=== PATIENT | female | born 1960 | race Caucasian/White ===

== ENCOUNTER 2018-06-14 21:31 | Emergency (ER) | payer MEDICAID ==
[~2018-06-14] VITALS: Ht 165.1 cm; Wt 97.8 kg
[~2018-06-14 21:31] MED LIST: ASPI81TA52 PO; ATOR20TA PO; BACL10TA PO; BUSP10TA11 PO; CARV6.253 PO; CLOP75TA35 PO; DOCU100C40 PO; FURO40TA4 PO; HYDR28.316 PR; LANS30CA37 PO; LISI-604 PO; LORA0.5T PO; NAS0.025NS BOTHNARES; NYST30CR2 TP; PARO10TA85 PO; PHEN100C4 PO; SUCR1ORA2 PO; ZOLP10TA5 PO; [UNRECOGNIZED DRUG - CODE] SL
[2018-06-14 22:05] LABS: BASOPHILS % (AUTO) 0.5 % (0-1); EOSINOPHILS # (AUTO) 0.1 X10'3 (0-0.9); HEMOGLOBIN 11.9 g/dl (12.0-16.0); LYMPHOCYTES # (AUTO) 2.7 X10'3 (1.1-4.8); LYMPHOCYTES % (AUTO) 36.4 % (21-51); MEAN CORPUSCULAR HEMOGLOBIN 27.5 PG (27.0-31.0); MEAN CORPUSCULAR HGB CONC 33.1 g/dL (33.0-36.5); MEAN CORPUSCULAR VOLUME 82.9 FL (78-98); MEAN PLATELET VOLUME 7.9 FL (7.4-10.4); MONOCYTES # (AUTO) 0.7 X10'3 (0-0.9); NEUTROPHILS # (AUTO) 3.8 X10'3 (1.8-7.7); NEUTROPHILS % (AUTO) 51.1 % (42-75); PLATELET COUNT 248 X10'3 (140-440); RED BLOOD COUNT 4.35 X10'6 (4.20-5.60); RED CELL DISTRIBUTION WIDTH 14.7 % (11.5-14.5); WHITE BLOOD COUNT 7.4 X10'3 (4.5-11.0)
[2018-06-14] MEDS ORDERED: aspirin 325mg tablet PO ONE (22:05)
[2018-06-14 22:16] LABS: ALANINE AMINOTRANSFERASE 43 U/L (12-78); ALBUMIN 3.8 G/DL (3.4-5.0); ALBUMIN/GLOBULIN RATIO 0.8 (1.1-1.5); ALKALINE PHOSPHATASE 91 IU/L (46-116); ANION GAP 6 (8-16); ASPARTATE AMINO TRANSFERASE 39 U/L (10-37); BILIRUBIN,TOTAL 0.2 MG/DL (0.1-1.0); BLOOD UREA NITROGEN 9 MG/DL (7-18); BUN/CREATININE RATIO 9.5 (6.6-38.0); CALCIUM 9.4 MG/DL (8.5-10.1); CHLORIDE 100 MMOL/L (99-107); CREATININE 0.95 MG/DL (0.40-0.90); GLUCOSE 117 MG/DL (70-104); POTASSIUM 3.5 MMOL/L (3.5-5.1); SODIUM 136 MMOL/L (135-145); TOTAL CARBON DIOXIDE 29.9 MMOL/L (24-32); TOTAL PROTEIN 8.4 G/DL (6.4-8.2); eGFR 61 ML/MIN
[2018-06-14 22:30] LABS: PARTIAL THROMBOPLASTIN TIME 40 SECONDS (22-32)
[2018-06-15 01:03] VITALS: BP 117/50
== END 2018-06-15 01:41 | disposition home or self-care (01) ==
LOC: ER 21:32
DX: R07.89 Other chest pain (principal); M79.652 Pain in left thigh; R51 Headache; R20.2 Paresthesia of skin; I10 Essential (primary) hypertension; I25.2 Old myocardial infarction; E11.9 Type 2 diabetes mellitus without complications; G89.29 Other chronic pain; J44.9 Chronic obstructive pulmonary disease, unspecified; Z79.899 Other long term (current) drug therapy; Z79.82 Long term (current) use of aspirin; Z88.0 Allergy status to penicillin; Z88.1 Allergy status to other antibiotic agents; Z88.2 Allergy status to sulfonamides; Z88.8 Allergy status to other drugs, medicaments and biological substances; Z90.710 Acquired absence of both cervix and uterus; Z98.890 Other specified postprocedural states; Z99.81 Dependence on supplemental oxygen
CPT/HCPCS: 36415; 71045; 80053; 84484; 85025; 85610; 85730; 93005; 99284

== ENCOUNTER 2020-01-11 15:49 | Emergency (ER) | payer MEDICAID ==
[~2020-01-11] VITALS: Ht 165.1 cm; Wt 111.4 kg
[~2020-01-11 15:49] MED LIST changes: +[UNRECOGNIZED DRUG - CODE] SL; -[UNRECOGNIZED DRUG - CODE] SL
[2020-01-11] MEDS ORDERED: normal saline 1000ML IV soln IVB ONE (16:45)
[2020-01-11 17:34] LABS: BASOPHILS # (AUTO) 0.1 X10'3 (0-0.2); BASOPHILS % (AUTO) 0.7 % (0-1); EOSINOPHILS # (AUTO) 0.1 X10'3 (0-0.9); EOSINOPHILS % (AUTO) 1.7 % (0-6); HEMATOCRIT 35.7 % (35.0-45.0); HEMOGLOBIN 11.8 g/dl (12.0-16.0); LYMPHOCYTES # (AUTO) 2.6 X10'3 (1.1-4.8); LYMPHOCYTES % (AUTO) 30.7 % (21-51); MEAN CORPUSCULAR HEMOGLOBIN 25.5 PG (27.0-31.0); MEAN CORPUSCULAR VOLUME 77.1 FL (78-98); MEAN PLATELET VOLUME 8.6 FL (7.4-10.4); MONOCYTES # (AUTO) 0.6 X10'3 (0-0.9); MONOCYTES % (AUTO) 7.2 % (2-12); NEUTROPHILS # (AUTO) 5.1 X10'3 (1.8-7.7); NEUTROPHILS % (AUTO) 59.7 % (42-75); PLATELET COUNT 220 X10'3 (140-440); RED BLOOD COUNT 4.63 X10'6 (4.20-5.60); RED CELL DISTRIBUTION WIDTH 16.4 % (11.5-14.5); WHITE BLOOD COUNT 8.5 X10'3 (4.5-11.0)
[2020-01-11 17:58] LABS: ALANINE AMINOTRANSFERASE 30 U/L (12-78); ALBUMIN 3.6 G/DL (3.4-5.0); ALBUMIN/GLOBULIN RATIO 0.6 (1.1-1.5); ALKALINE PHOSPHATASE 100 IU/L (46-116); ANION GAP 9 (8-16); ASPARTATE AMINO TRANSFERASE 31 U/L (10-37); BILIRUBIN,TOTAL 0.2 MG/DL (0.1-1.0); BLOOD UREA NITROGEN 10 MG/DL (7-18); BUN/CREATININE RATIO 11.2 (6.6-38.0); CALCIUM 9.3 MG/DL (8.5-10.1); CHLORIDE 98 MMOL/L (99-107); CREATININE 0.89 MG/DL (0.40-0.90); GLUCOSE 107 MG/DL (70-104); POTASSIUM 3.9 MMOL/L (3.5-5.1); SODIUM 138 MMOL/L (135-145); TOTAL CARBON DIOXIDE 30.9 MMOL/L (24-32); TOTAL PROTEIN 9.2 G/DL (6.4-8.2); eGFR 65 ML/MIN
[2020-01-11 18:02] LABS: C-REACTIVE PROTEIN 0.08 MG/DL (0.0-0.5); FERRITIN 12 NG/ML (8-252); LACTATE DEHYDROGENASE 180 U/L (81-234); LIPASE 251 U/L (73-393)
[2020-01-11] MEDS ORDERED: CIPR-259 PO (18:36)
[2020-01-11] MEDS ORDERED: METR500T PO (18:36)
[2020-01-11 18:50] VITALS: BP 120/80
== END 2020-01-11 18:51 | disposition home or self-care (01) ==
LOC: ER 15:50
DX: J02.9 Acute pharyngitis, unspecified (principal); B34.9 Viral infection, unspecified; R10.84 Generalized abdominal pain; K52.9 Noninfective gastroenteritis and colitis, unspecified; R43.8 Other disturbances of smell and taste; Z20.828 Contact with and (suspected) exposure to other viral communicable diseases; I10 Essential (primary) hypertension; I25.2 Old myocardial infarction; J45.909 Unspecified asthma, uncomplicated; E11.9 Type 2 diabetes mellitus without complications; G89.29 Other chronic pain; Z86.69 Personal history of other diseases of the nervous system and sense organs; Z90.710 Acquired absence of both cervix and uterus; Z98.890 Other specified postprocedural states; Z88.0 Allergy status to penicillin; Z88.2 Allergy status to sulfonamides; Z88.1 Allergy status to other antibiotic agents; Z88.8 Allergy status to other drugs, medicaments and biological substances; Z79.82 Long term (current) use of aspirin; Z79.2 Long term (current) use of antibiotics; Z79.899 Other long term (current) drug therapy
CPT/HCPCS: 36415; 74176; 80053; 82728; 83615; 83690; 84145; 85025; 85384; 86140; 87635; 96360; 99284; C9803; J7030

== ENCOUNTER 2020-08-27 21:39 | Emergency (ER) | payer MEDICAID ==
[~2020-08-27] VITALS: Ht 165.1 cm; Wt 90.0 kg
[~2020-08-27 21:39] MED LIST changes: +CLOP75TA34 PO; -CLOP75TA35 PO; -LISI-604 PO; +LISI-790 PO
[2020-08-27 23:30] LABS: BASOPHILS % (AUTO) 0.4 % (0-1); EOSINOPHILS # (AUTO) 0.2 X10'3 (0-0.9); EOSINOPHILS % (AUTO) 3.2 % (0-6); HEMATOCRIT 30.9 % (35.0-45.0); HEMOGLOBIN 10.1 g/dl (12.0-16.0); LYMPHOCYTES # (AUTO) 1.8 X10'3 (1.1-4.8); LYMPHOCYTES % (AUTO) 23.3 % (21-51); MEAN CORPUSCULAR HEMOGLOBIN 26.5 PG (27.0-31.0); MEAN CORPUSCULAR HGB CONC 32.7 g/dL (33.0-36.5); MEAN PLATELET VOLUME 8.4 FL (7.4-10.4); MONOCYTES # (AUTO) 0.6 X10'3 (0-0.9); NEUTROPHILS # (AUTO) 4.9 X10'3 (1.8-7.7); NEUTROPHILS % (AUTO) 65.1 % (42-75); PLATELET COUNT 158 X10'3 (140-440); RED BLOOD COUNT 3.82 X10'6 (4.20-5.60); WHITE BLOOD COUNT 7.6 X10'3 (4.5-11.0)
[2020-08-27 23:47] LABS: ALANINE AMINOTRANSFERASE 29 U/L (12-78); ALBUMIN/GLOBULIN RATIO 0.6 (1.1-1.5); ALKALINE PHOSPHATASE 57 IU/L (46-116); ANION GAP 5 (8-16); ASPARTATE AMINO TRANSFERASE 40 U/L (10-37); BILIRUBIN,TOTAL 0.3 MG/DL (0.1-1.0); BLOOD UREA NITROGEN 4 MG/DL (7-18); BUN/CREATININE RATIO 5.2 (6.6-38.0); CALCIUM 8.7 MG/DL (8.5-10.1); CHLORIDE 103 MMOL/L (99-107); CREATININE 0.77 MG/DL (0.40-0.90); GLUCOSE 104 MG/DL (70-104); POTASSIUM 3.3 MMOL/L (3.5-5.1); SODIUM 138 MMOL/L (135-145); TOTAL CARBON DIOXIDE 29.7 MMOL/L (24-32); TOTAL PROTEIN 8.1 G/DL (6.4-8.2); eGFR 77 ML/MIN
[2020-08-28 00:02] VITALS: BP 143/90
== END 2020-08-28 00:05 | disposition home or self-care (01) ==
LOC: ER 21:41
DX: T81.9XXA Unspecified complication of procedure, initial encounter (principal); R23.3 Spontaneous ecchymoses; I11.9 Hypertensive heart disease without heart failure; J45.909 Unspecified asthma, uncomplicated; J44.9 Chronic obstructive pulmonary disease, unspecified; F41.9 Anxiety disorder, unspecified; F32.9 Major depressive disorder, single episode, unspecified; E11.9 Type 2 diabetes mellitus without complications; Z88.0 Allergy status to penicillin; Z88.2 Allergy status to sulfonamides; Z88.8 Allergy status to other drugs, medicaments and biological substances; Z79.899 Other long term (current) drug therapy
CPT/HCPCS: 36415; 80053; 84145; 85025; 99283

== ENCOUNTER 2021-09-13 19:52 | Emergency (ER) | payer MEDICAID ==
[~2021-09-13] VITALS: Ht 165.1 cm; Wt 98.1 kg
[~2021-09-13 19:52] MED LIST changes: -LISI-790 PO; +LISI5TAB22 PO; -NYST30CR2 TP; +NYST30CR34 TP
[2021-09-13 22:11] LABS: BASOPHILS % (AUTO) 0.5 % (0-1); EOSINOPHILS # (AUTO) 0.1 X10'3 (0-0.9); EOSINOPHILS % (AUTO) 0.9 % (0-6); HEMATOCRIT 37.5 % (35.0-45.0); HEMOGLOBIN 12.3 g/dl (12.0-16.0); LYMPHOCYTES # (AUTO) 1.9 X10'3 (1.1-4.8); LYMPHOCYTES % (AUTO) 35.3 % (21-51); MEAN CORPUSCULAR HEMOGLOBIN 26.2 PG (27.0-31.0); MEAN CORPUSCULAR HGB CONC 32.7 g/dL (33.0-36.5); MEAN CORPUSCULAR VOLUME 79.9 FL (78-98); MEAN PLATELET VOLUME 8.6 FL (7.4-10.4); MONOCYTES # (AUTO) 0.7 X10'3 (0-0.9); MONOCYTES % (AUTO) 13.1 % (2-12); NEUTROPHILS # (AUTO) 2.7 X10'3 (1.8-7.7); NEUTROPHILS % (AUTO) 50.2 % (42-75); PLATELET COUNT 183 X10'3 (140-440); RED CELL DISTRIBUTION WIDTH 16.7 % (11.5-14.5); WHITE BLOOD COUNT 5.4 X10'3 (4.5-11.0)
[2021-09-13] MEDS ORDERED: diphenhydrAMINE 50 mg/ml inj IV PRN (22:15)
[2021-09-13] MEDS ORDERED: BEBTELOVIMAB 175 MG/2 ML VIAL IV ONE (22:15)
[2021-09-13] MEDS ORDERED: acetaminophen 325mg tablet PO PRN (22:15)
[2021-09-13] MEDS ORDERED: epiNEPHrine 1 mg/ml inj IM PRN (22:15)
[2021-09-13] MEDS ORDERED: albuterol 2.5 MG/3 ML nebule NEB PRN (22:15)
[2021-09-13] MEDS ORDERED: hydrocortisone sod succ/PF 100mg/2ml inj. IV PRN (22:15)
[2021-09-13] MEDS ORDERED: famotidine/PF 10 mg/ml inj IV PRN (22:15)
[2021-09-13 22:20] LABS: ALANINE AMINOTRANSFERASE 32 U/L (12-78); ALBUMIN 3.8 G/DL (3.4-5.0); ALBUMIN/GLOBULIN RATIO 0.7 (1.1-1.5); ALKALINE PHOSPHATASE 81 IU/L (46-116); ANION GAP 8 (8-16); ASPARTATE AMINO TRANSFERASE 36 U/L (10-37); BILIRUBIN,TOTAL 0.3 MG/DL (0.1-1.0); BLOOD UREA NITROGEN 10 MG/DL (7-18); BUN/CREATININE RATIO 9.8 (6.6-38.0); CALCIUM 8.6 MG/DL (8.5-10.1); CHLORIDE 100 MMOL/L (99-107); CREATININE 1.02 MG/DL (0.40-0.90); GLUCOSE 103 MG/DL (70-104); POTASSIUM 3.7 MMOL/L (3.5-5.1); SODIUM 139 MMOL/L (135-145); TOTAL CARBON DIOXIDE 31.4 MMOL/L (24-32); TOTAL PROTEIN 9.5 G/DL (6.4-8.2); eGFR 55 ML/MIN
[2021-09-13 22:44] LABS: CLARITY,URINE CLOUDY (Clear); COLOR,URINE YELLOW (Yellow); GLUCOSE, URINE NEGATIVE (Neg); KETONES,URINE NEGATIVE (Neg); LEUKOCYTE ESTERASE ,URINE SMALL (Neg); NITRITES, URINE NEGATIVE (Neg); OCCULT BLOOD,URINE TRACE-INTACT (Neg); PROTEIN,URINE 30 mg/dl (Neg); UROBILINOGEN,URINE 0.2 E.U/dL (0.2-1.0)
[2021-09-13 22:57] LABS: UA COLLECTION TYPE NON-SPECIFIED
[2021-09-13 23:03] LABS: BACTERIA,URINE 2+ /HPF (Neg); RBC,URINE 0-2 /HPF (0-2); SQUAMOUS EPITHELIAL CELL,UR MANY /LPF (FEW)
[2021-09-13 23:04] LABS: MUCUS STRANDS FEW /LPF (Neg); TRANSITIONAL EPI CELLS,URINE FEW /HPF
[2021-09-13] MEDS ORDERED: phenazopyridine 100mg tablet PO ONE (23:15)
[2021-09-13] MEDS ORDERED: azithromycin 250mg tablet PO ONE (23:15)
[2021-09-13] MEDS ORDERED: AZIT-83 PO (23:21)
[2021-09-13] MEDS ORDERED: acetaminophen 325mg tablet PO ONE (23:55)
[2021-09-14 04:04] VITALS: BP 112/78
== END 2021-09-14 04:07 | disposition home or self-care (01) ==
LOC: ER 19:54
DX: U07.1 COVID-19 (principal); N30.00 Acute cystitis without hematuria; I11.9 Hypertensive heart disease without heart failure; E11.9 Type 2 diabetes mellitus without complications; F41.9 Anxiety disorder, unspecified; F32.A Depression, unspecified; Z98.890 Other specified postprocedural states; Z88.0 Allergy status to penicillin; Z88.2 Allergy status to sulfonamides; Z88.1 Allergy status to other antibiotic agents; Z88.8 Allergy status to other drugs, medicaments and biological substances; Z79.899 Other long term (current) drug therapy; Z79.82 Long term (current) use of aspirin; Z79.2 Long term (current) use of antibiotics
CPT/HCPCS: 36415; 71045; 80053; 81001; 85025; 87088; 87811; 93005; 99285; M0222; Q0222

== ENCOUNTER 2022-08-01 16:32 | Inpatient (IN) | payer MEDICAID ==
[~2022-08-01] VITALS: Ht 165.1 cm; Wt 94.1 kg
[~2022-08-01 16:32] MED LIST changes: +PARO-153 PO; -PARO10TA85 PO
[2022-08-01 17:19] LABS: BASOPHILS % (AUTO) 0.5 % (0-1); EOSINOPHILS # (AUTO) 0.2 X10'3 (0-0.9); EOSINOPHILS % (AUTO) 1.7 % (0-6); HEMATOCRIT 45.7 % (35.0-45.0); HEMOGLOBIN 15.5 g/dl (12.0-16.0); LYMPHOCYTES % (AUTO) 31.4 % (21-51); MEAN CORPUSCULAR HEMOGLOBIN 30.9 PG (27.0-31.0); MEAN CORPUSCULAR VOLUME 90.8 FL (78-98); MEAN PLATELET VOLUME 8.8 FL (7.4-10.4); MONOCYTES # (AUTO) 0.6 X10'3 (0-0.9); MONOCYTES % (AUTO) 6.1 % (2-12); NEUTROPHILS # (AUTO) 5.8 X10'3 (1.8-7.7); NEUTROPHILS % (AUTO) 60.3 % (42-75); PLATELET COUNT 209 X10'3 (140-440); RED BLOOD COUNT 5.03 X10'6 (4.20-5.60); WHITE BLOOD COUNT 9.6 X10'3 (4.5-11.0)
[2022-08-01 17:40] LABS: ALANINE AMINOTRANSFERASE 37 U/L (12-78); ALBUMIN/GLOBULIN RATIO 0.8 (1.1-1.5); ALKALINE PHOSPHATASE 104 IU/L (46-116); ANION GAP 6 (8-16); ASPARTATE AMINO TRANSFERASE 39 U/L (10-37); BILIRUBIN,TOTAL 0.2 MG/DL (0.1-1.0); BLOOD UREA NITROGEN 6 MG/DL (7-18); BUN/CREATININE RATIO 6.5 (10.0-20.0); CALCIUM 9.2 MG/DL (8.5-10.1); CHLORIDE 100 MMOL/L (99-107); CREATININE 0.92 MG/DL (0.40-0.90); GLUCOSE 106 MG/DL (70-104); POTASSIUM 3.8 MMOL/L (3.5-5.1); SODIUM 137 MMOL/L (135-145); TOTAL CARBON DIOXIDE 31.3 MMOL/L (24-32); TOTAL PROTEIN 9.1 G/DL (6.4-8.2); eGFR 62 ML/MIN
--- NOTE | 2022-08-01 19:23 | NUR ---
pt to ct
[2022-08-01 19:25] LABS: BASOPHILS # (AUTO) 0.1 X10'3 (0-0.2); BASOPHILS % (AUTO) 0.6 % (0-1); EOSINOPHILS # (AUTO) 0.2 X10'3 (0-0.9); EOSINOPHILS % (AUTO) 1.7 % (0-6); HEMATOCRIT 44.3 % (35.0-45.0); HEMOGLOBIN 15.1 g/dl (12.0-16.0); LYMPHOCYTES # (AUTO) 2.9 X10'3 (1.1-4.8); LYMPHOCYTES % (AUTO) 30.1 % (21-51); MEAN CORPUSCULAR HEMOGLOBIN 31.1 PG (27.0-31.0); MEAN CORPUSCULAR HGB CONC 34.1 g/dL (33.0-36.5); MEAN CORPUSCULAR VOLUME 91.2 FL (78-98); MEAN PLATELET VOLUME 8.2 FL (7.4-10.4); MONOCYTES # (AUTO) 0.6 X10'3 (0-0.9); NEUTROPHILS # (AUTO) 5.9 X10'3 (1.8-7.7); NEUTROPHILS % (AUTO) 61.6 % (42-75); PLATELET COUNT 199 X10'3 (140-440); RED BLOOD COUNT 4.86 X10'6 (4.20-5.60); RED CELL DISTRIBUTION WIDTH 13.6 % (11.5-14.5); WHITE BLOOD COUNT 9.6 X10'3 (4.5-11.0)
[2022-08-01] MEDS: normal saline 500ml IV soln 500 ML IV SCH ×3 (19:28→23:15)
[2022-08-01 19:40] LABS: ALANINE AMINOTRANSFERASE 38 U/L (12-78); ALBUMIN 4.1 G/DL (3.4-5.0); ALBUMIN/GLOBULIN RATIO 0.9 (1.1-1.5); ALKALINE PHOSPHATASE 98 IU/L (46-116); ANION GAP 6 (8-16); ASPARTATE AMINO TRANSFERASE 37 U/L (10-37); BILIRUBIN,TOTAL 0.3 MG/DL (0.1-1.0); BLOOD UREA NITROGEN 7 MG/DL (7-18); BUN/CREATININE RATIO 7.3 (10.0-20.0); CALCIUM 9.5 MG/DL (8.5-10.1); CHLORIDE 100 MMOL/L (99-107); CREATININE 0.96 MG/DL (0.40-0.90); GLUCOSE 126 MG/DL (70-104); POTASSIUM 3.7 MMOL/L (3.5-5.1); SODIUM 138 MMOL/L (135-145); TOTAL PROTEIN 8.9 G/DL (6.4-8.2); eGFR 59 ML/MIN
[2022-08-01 19:43] LABS: ETHANOL < 0.010 GM/DL (0.0-0.010)
[2022-08-01 20:48] LABS: CLARITY,URINE SLIGHTLY CLOUDY (Clear); GLUCOSE, URINE NEGATIVE (Neg); KETONES,URINE NEGATIVE (Neg); LEUKOCYTE ESTERASE ,URINE NEGATIVE (Neg); NITRITES, URINE NEGATIVE (Neg); OCCULT BLOOD,URINE NEGATIVE (Neg); PH,URINE 5.5 (4.8-8.0); PROTEIN,URINE 30 mg/dl (Neg); UROBILINOGEN,URINE 0.2 E.U/dL (0.2-1.0)
[2022-08-01 20:50] LABS: COLOR,URINE DARK YELLOW (Yellow); UA COLLECTION TYPE CLN CATCH MIDSTREAM
[2022-08-01 21:01] LABS: BACTERIA,URINE 3+ /HPF (Neg); MUCUS STRANDS FEW /LPF (Neg); RBC,URINE 0-2 /HPF (0-2); SQUAMOUS EPITHELIAL CELL,UR MANY /LPF (FEW); TRANSITIONAL EPI CELLS,URINE FEW /HPF
[2022-08-01 21:03] LABS: URINE AMPHETAMINE SCREEN NEGATIVE (Neg); URINE BARBITUATE SCREEN POSITIVE (Neg); URINE BENZODIAZEPINES SCREEN NEGATIVE (Neg); URINE CANNABINOID SCREEN NEGATIVE (Neg); URINE COCAINE SCREEN NEGATIVE (Neg); URINE METHADONE SCREEN NEGATIVE (Neg); URINE OPIATE SCREEN NEGATIVE (Neg); URINE PHENCYCLIDINE SCREEN NEGATIVE (Neg)
--- NOTE | 2022-08-02 00:09 | NUR ---
assumed care from ana rosa avery
--- NOTE | 2022-08-02 00:28 | NUR ---
tele neuro consult in progress at bedside
[2022-08-02] MEDS: normal saline 500ml IV soln 500 ML IV SCH (01:15)
[2022-08-02] MEDS ORDERED: diphenhydrAMINE 50 mg/ml inj IV PRN (01:20)
[2022-08-02] MEDS ORDERED: bisacodyl 10mg suppository rectal RC PRN (01:20)
[2022-08-02] MEDS ORDERED: diphenhydrAMINE 25mg capsule PO PRN (01:20)
[2022-08-02] MEDS ORDERED: acetaminophen 650mg rectal suppository RC PRN (01:20)
[2022-08-02] MEDS ORDERED: HYDROcodone/acetaminophen 5mg/325mg tablet PO PRN ×2 (01:20→08:30)
[2022-08-02] MEDS ORDERED: morphine 2 MG/ML inj. syringe IV PRN ×2 (01:20)
[2022-08-02] MEDS ORDERED: mag hydrox/Alum hydrox/simeth 30ml oral suspension PO PRN (01:20)
[2022-08-02] MEDS ORDERED: ondansetron 4mg rapidly disintigrating tab PO PRN (01:20)
[2022-08-02] MEDS ORDERED: magnesium hydroxide 30ml (MOM) UD suspension PO PRN (01:20)
[2022-08-02] MEDS ORDERED: ondansetron/PF 4mg/2ml inj IV PRN (01:20)
[2022-08-02] MEDS ORDERED: acetaminophen 325mg tablet PO PRN (01:20)
[2022-08-02] MEDS: normal saline 1000ml 1,000 ML IV SCH ×3 (02:02→21:20)
[2022-08-02 02:08] LABS: HEMOGLOBIN A1C 5.9 % (4.5-6.2)
[2022-08-02 02:10] LABS: APTT 35 SECONDS (22-32); D-DIMER 0.21 MG/L FEU (0-0.50)
[2022-08-02 02:19] LABS: LIPASE < 50 U/L (73-393); MAGNESIUM 1.4 MG/DL (1.5-2.4); PHOSPHORUS 3.2 MG/DL (2.3-4.5)
[2022-08-02] MEDS ORDERED: pantoprazole 40mg Tablet.DR PO SCH (07:30)
[2022-08-02] MEDS ORDERED: heparin, porcine 5000 units/ml vial SQ SCH (08:00)
[2022-08-02] MEDS ORDERED: docusate sod 100mg capsule PO SCH (08:00)
[2022-08-02 10:00] VITALS: BP 139/73
[2022-08-02] MEDS: busPIRone 5mg tablet PO SCH ×2 (13:29→21:01)
[2022-08-02] MEDS: acetaminophen 325mg tablet PO PRN ×2 (13:31→21:01)
[2022-08-02 18:00] VITALS: BP 157/93
--- NOTE | 2022-08-02 18:00 | NUR ---
Patient in room [facility]. I have received report from Gaviota ANGULO and had the opportunity to ask questions and assume patient care.
--- NOTE | 2022-08-02 18:07 | NUR ---
Pt c/o pain to IV site earlier this shift, new IV placed to new site. Pt again c/o pain. Pt states he did not want anymore IV Dr. Polk informed.
--- NOTE | 2022-08-02 18:24 | NUR ---
Problems reprioritized. Patient report given, questions answered & plan of care reviewed with
[2022-08-02] MEDS: carvedilol 6.25mg tablet PO SCH (20:58)
[2022-08-02] MEDS: sucralfate 1 gm tablet PO SCH (20:58)
[2022-08-02] MEDS: fluticasone nasal spray 16GM bottle NS SCH (20:58)
[2022-08-02] MEDS ORDERED: atorvastatin 20mg tablet PO SCH (21:00)
[2022-08-02] MEDS ORDERED: temazepam 15mg capsule PO PRN (21:00)
[2022-08-02] MEDS ORDERED: zolpidem 5mg tablet PO SCH (21:00)
[2022-08-02 22:00] VITALS: BP 161/91
[2022-08-03] MEDS: normal saline 1000ml 1,000 ML IV SCH (01:33)
[2022-08-03 06:22] LABS: BASOPHILS % (AUTO) 0.3 % (0-1); EOSINOPHILS # (AUTO) 0.1 X10'3 (0-0.9); EOSINOPHILS % (AUTO) 2.5 % (0-6); HEMATOCRIT 37.3 % (35.0-45.0); HEMOGLOBIN 12.7 g/dl (12.0-16.0); LYMPHOCYTES % (AUTO) 39.6 % (21-51); MEAN CORPUSCULAR HGB CONC 34.1 g/dL (33.0-36.5); MEAN PLATELET VOLUME 8.6 FL (7.4-10.4); MONOCYTES # (AUTO) 0.4 X10'3 (0-0.9); MONOCYTES % (AUTO) 7.8 % (2-12); NEUTROPHILS # (AUTO) 2.5 X10'3 (1.8-7.7); NEUTROPHILS % (AUTO) 49.8 % (42-75); PLATELET COUNT 143 X10'3 (140-440); RED CELL DISTRIBUTION WIDTH 13.9 % (11.5-14.5); WHITE BLOOD COUNT 5.1 X10'3 (4.5-11.0)
[2022-08-03 06:30] VITALS: BP 98/60
[2022-08-03 06:39] LABS: ALANINE AMINOTRANSFERASE 27 U/L (12-78); ALBUMIN 3.1 G/DL (3.4-5.0); ALBUMIN/GLOBULIN RATIO 0.8 (1.1-1.5); ALKALINE PHOSPHATASE 75 IU/L (46-116); ANION GAP 5 (8-16); ASPARTATE AMINO TRANSFERASE 29 U/L (10-37); BILIRUBIN,TOTAL 0.2 MG/DL (0.1-1.0); BLOOD UREA NITROGEN 4 MG/DL (7-18); BUN/CREATININE RATIO 6.3 (10.0-20.0); CALCIUM 8.8 MG/DL (8.5-10.1); CHLORIDE 106 MMOL/L (99-107); CHOL/HDL RATIO 2.8 (0.00-4.99); CHOLESTEROL 130 MG/DL (0-200); CREATININE 0.64 MG/DL (0.40-0.90); GLUCOSE 115 MG/DL (70-104); HDL CHOLESTEROL 47 MG/DL (35-60); LDL CHOLESTEROL 51 MG/DL (50-100); POTASSIUM 3.3 MMOL/L (3.5-5.1); SODIUM 143 MMOL/L (135-145); TOTAL CARBON DIOXIDE 32.3 MMOL/L (24-32); TOTAL PROTEIN 7.2 G/DL (6.4-8.2); TRIGLYCERIDES 250 MG/DL (20-135); eGFR > 90 ML/MIN
[2022-08-03] MEDS: busPIRone 5mg tablet PO SCH ×2 (07:44→12:37)
[2022-08-03] MEDS: sucralfate 1 gm tablet PO SCH (07:44)
[2022-08-03] MEDS: fluticasone nasal spray 16GM bottle NS SCH (07:45)
[2022-08-03] MEDS: carvedilol 6.25mg tablet PO SCH (07:48)
[2022-08-03] MEDS ORDERED: lisinopril 5mg tablet PO SCH (08:00)
[2022-08-03] MEDS ORDERED: phenytoin sod ER 100mg capsule PO SCH (08:00)
[2022-08-03] MEDS ORDERED: pantoprazole 40mg Tablet.DR PO SCH (08:00)
[2022-08-03] MEDS ORDERED: aspirin 81mg, enteric-coated 1 TAB TABLET.DR PO SCH (08:00)
[2022-08-03] MEDS ORDERED: clopidogrel 75mg tablet PO SCH (08:00)
[2022-08-03] MEDS ORDERED: PARoxetine 10mg tablet PO SCH (08:00)
--- NOTE | 2022-08-03 09:22 | NUR ---
Malnutrition consult: Pt reports 2-13 lb wt loss with decreased appetite/PO intake per malnutrition risk screen with RN. Most recent scaled wt hx in EMR is 98.1 kg 09/13/21, current scaled wt is 94.09 kg. This is non-significant wt loss of 3% in greater than 10 months. Pt currently on a regular diet, documented with 0% PO intake of first meal however with 75-100 PO intake of the following two meals. Pt with no documented decrease in muscle strength or edema and per H&P pt appears well developed well nourished. Pt currently lacks a minimum of two criteria for malnutrition. Will continue to follow and monitor s/s of malnutrition. Addendum: 08/03/22 at [address] Amended: Links added.
--- NOTE | 2022-08-03 09:23 | NUR ---
promotional table spacer promotional table spacer Page Sent promotional table spacer PAGER ID: [phone] MESSAGE: Destiny Harrison [id number] K+ level 3.3, Mag 1.4. Do you want replacement protocol? Anita [phone]
[2022-08-03 10:03] VITALS: BP 139/86
[2022-08-03] MEDS ORDERED: BACL10TA PO (12:36)
--- NOTE | 2022-08-03 13:44 | NUR ---
promotional table spacer promotional table spacer Page Sent promotional table spacer PAGER ID: [phone] MESSAGE: Anita [id number] Christy Destiny [id number] does not have prescription for Lisinopril, phenytoin or carafate. Can you send in to pharmacy? do you want to wait for EEG results before sending home?
--- NOTE | 2022-08-03 14:24 | NUR ---
Pt discharged home with all belongings. IV removed from pt. Pt in stable condition upon discharge. Pt's daughter transported pt home.
== END 2022-08-03 14:13 | disposition home or self-care (01) | DRG 204 ==
LOC: ER 16:33 → ED HOLD 08-02 01:24 → EDBEDREQ 08-02 06:05 → ORTHO 4S 08-02 07:30
PROVIDERS: ADMIT Family Medicine; ATTEND Internal Medicine
PROC: 4A00X4Z Measurement of Central Nervous Electrical Activity, External Approach (ICD-10-PCS; principal; 2022-08-03)
DX: R55 Syncope and collapse (principal); N17.9 Acute kidney failure, unspecified; I13.0 Hypertensive heart and chronic kidney disease with heart failure and stage 1 through stage 4 chronic kidney disease, or unspecified chronic kidney disease; I50.32 Chronic diastolic (congestive) heart failure; E11.22 Type 2 diabetes mellitus with diabetic chronic kidney disease; K74.60 Unspecified cirrhosis of liver; E78.5 Hyperlipidemia, unspecified; F32.A Depression, unspecified; G40.909 Epilepsy, unspecified, not intractable, without status epilepticus; G89.29 Other chronic pain; K21.9 Gastro-esophageal reflux disease without esophagitis; E66.9 Obesity, unspecified; I25.10 Atherosclerotic heart disease of native coronary artery without angina pectoris; J44.9 Chronic obstructive pulmonary disease, unspecified; M54.2 Cervicalgia; N18.9 Chronic kidney disease, unspecified; M54.9 Dorsalgia, unspecified; T46.5X5A Adverse effect of other antihypertensive drugs, initial encounter; Z77.22 Contact with and (suspected) exposure to environmental tobacco smoke (acute) (chronic); Z86.73 Personal history of transient ischemic attack (TIA), and cerebral infarction without residual deficits; Z88.0 Allergy status to penicillin; I25.2 Old myocardial infarction; Z88.2 Allergy status to sulfonamides; Z88.8 Allergy status to other drugs, medicaments and biological substances; Z90.710 Acquired absence of both cervix and uterus; Z95.5 Presence of coronary angioplasty implant and graft; Z82.49 Family history of ischemic heart disease and other diseases of the circulatory system; Z83.3 Family history of diabetes mellitus; Z82.3 Family history of stroke; Z84.89 Family history of other specified conditions; Z79.899 Other long term (current) drug therapy; Z79.82 Long term (current) use of aspirin; Z68.34 Body mass index [BMI] 34.0-34.9, adult; Y92.89 Other specified places as the place of occurrence of the external cause
CPT/HCPCS: 36415; 70450; 71045; 80053; 80061; 80184; 80188; 80305; 80320; 81001; 83036; 83690; 83735; 83880; 84100; 84443; 84484; 85025; 85379; 85610; 85730; 87081; 93005; 93306; 93880; 95816; 97116; 97161; 97530; 99285; G0378; J1644; J7030; J7040